=== PATIENT | female | born 1960 | race Caucasian/White ===

== ENCOUNTER 2017-01-02 13:19 | Inpatient (IN) | payer OTHER ==
[~2017-01-02] VITALS: Ht 157.5 cm; Wt 204.1 kg
[2017-01-02 16:02] LABS: ABSOLUTE BASOPHIL COUNT 0.1 /CUMM (0.0-0.2); ABSOLUTE EOSINOPHIL COUNT 0.1 /CUMM (0.0-0.7); ABSOLUTE GRANULOCYTE CT 10.4 /CUMM (1.4-6.5); ABSOLUTE LYMPH COUNT 1.6 /CUMM (1.2-3.4); ABSOLUTE MONOCYTE COUNT 0.9 /CUMM (0.10-0.60); BASOPHIL % 0.4 % (0.0-2.0); EOSINOPHIL % 0.6 % (0-5); GRANULOCYTE % 79.4 % (42.2-75.2); MEAN CORPUSCULAR HGB 29.8 PG (27.0-31.0); MEAN CORPUSCULAR HGB CONC 32.5 G/DL (33.0-37.0); MEAN CORPUSCULAR VOLUME 91.6 FL (81.0-99.0); MEAN PLATELET VOLUME 8.8 FL (7.4-10.4); PLATELET COUNT 240 /CUMM (130-400); RBC DISTRIBUTION WIDTH 14.8 % (11.5-14.5); RED BLOOD CELL CT 5.45 /CUMM (4.20-5.40); WHITE BLOOD CELL COUNT 13.1 /CUMM (4.8-10.8)
--- NOTE | 2017-01-02 16:29 | ED GENERAL ADULT ---
History of Present Illness General Chief Complaint: Abdominal Pain/Flank Pain Stated Complaint: "UM I THINK MY STOMACH IS DISTENDED" Source: patient Exam Limitations: no limitations Vital Signs & Intake/Output Vital Signs & Intake/Output Vital Signs Date Time Temp Pulse Resp B/P Pulse O2 O2 Flow FiO2 Ox Delivery Rate 01/03 2012 98.2 78 19 168/68 97 Room Air 01/02 1623 97.8 100 19 138/76 98 Room Air 01/02 1327 97.9 101 18 139/82 97 Room Air Allergies Coded Allergies: Penicillins (RASH 01/02/17) Reconcile Medications No Known Home Medications Triage Note: C/O ABDOMINAL DISTENSION SINCE MONDAY, +NAUSEA. DECREASED APPETITE. DENIES ABDOMINAL PAIN AT THIS TIME. Triage Nurses Notes Reviewed? yes Onset: Abrupt Duration: day(s): Timing: recent history HPI: 01/02/17 This is a 56-year-old female presents to the emergency department complaining of abdominal pain and distention. She says she was in her usual state of health until last week when she had flulike symptoms. She said she developed subsequently dry heaves. No diarrhea. She says her abdomen is becoming more distended. The onset of the symptoms have been abrupt, the duration has been approximately 7 days, the severity is significant; as her symptoms required her to come to the emergency department for care. She denies any significant past medical or surgical history. No associated symptoms other than malaise, vomiting, and abdominal pain. On physical exam her abdomen is mildly distended and she has right lower quadrant abdominal tenderness, no rebound or guarding. Past History Travel History Traveled to [place] past 21 day No Medical History Any Pertinent Medical History? see below for history Surgical History Surgical History: none Psychosocial History What is your primary language Gibraltarian Family History Hx Contributory? No Review of Systems Review of Systems Constitutional: Denies: fever. EENTM: Reports: no symptoms. Respiratory: Reports: no symptoms. Cardiovascular: Reports: no symptoms. GI: Reports: abdominal pain, vomiting. Genitourinary: Reports: no symptoms. Musculoskeletal: Reports: no symptoms. Skin: Reports: no symptoms. Neurological/Psychological: Reports: no symptoms. Hematologic/Endocrine: Reports: no symptoms. Immunologic/Allergic: Reports: no symptoms. Physical Exam Physical Exam General Appearance: alert, awake, anxious, moderate distress Head: atraumatic, normal appearance Eyes: Bilateral: normal appearance, PERRL, EOMI. Ears, Nose, Throat: normal pharynx, normal ENT inspection Neck: normal inspection, supple Respiratory: normal breath sounds, no respiratory distress Cardiovascular: regular rate/rhythm Peripheral Pulses: 4+ radial (R), 4+ radial (L) Gastrointestinal: tenderness Back: decreased range of motion Extremities: pedal edema Neurologic/Psych: no motor/sensory deficits, awake, alert, oriented x 3 Skin: intact, normal color Comments: On physical exam her abdomen is distended, she has an erythematous, tender, and umbilical hernia, she also has right lower quadrant abdominal tenderness no rebound or guarding. Core Measures ACS in differential dx? No CVA/TIA Diagnosis: No Severe Sepsis Present: No Septic Shock Present: No Progress Differential Diagnoses I considered the following diagnoses in my evaluation of the patient: Plan of Care: Orders Procedure Date/time Status Nothing by Mouth 01/03 B Active Admit to inpatient 01/02 1838 Active TYPE & SCREEN (NOT X-MATCH) 01/02 1825 Complete LIPASE 01/02 1544 Complete LACTIC ACID 01/02 1544 Complete COMPREHENSIVE METABOLIC PANEL 01/02 1544 Complete CBC WITHOUT DIFFERENTIAL 01/02 1544 Complete AMYLASE 01/02 1544 Complete Laboratory Tests 01/02/17 1844: Lactic Acid Cancelled 01/02/17 1555: Anion Gap 10, Estimated GFR > 60, BUN/Creatinine Ratio 15.6, Glucose 113 H, Lactic Acid 2.1, Calcium 10.0, Total Bilirubin 0.9, AST 24, ALT 27, Alkaline Phosphatase 116, Total Protein 8.0, Albumin 4.5, Globulin 3.5, Albumin/Globulin Ratio 1.3, Amylase < 30 L, Lipase 40, CBC w Diff NO MAN DIFF REQ, RBC 5.45 H, MCV 91.6, MCH 29.8, RDW 14.8 H, MPV 8.8, Gran % 79.4 H, Lymphocytes % 12.4 L, Monocytes % 7.2, Eosinophils % 0.6, Basophils % 0.4, Absolute Granulocytes 10.4 H, Absolute Lymphocytes 1.6, Absolute Monocytes 0.9 H, Absolute Eosinophils 0.1 , Absolute Basophils 0.1, PUBS MCHC 32.5 L Initial ED EKG: none Departure Departure Disposition: STILL A PATIENT Condition: Stable Clinical Impression Primary Impression: Bowel obstruction Referrals: GENE MCCLAIN MD (PCP/Family) Departure Forms: Customer Survey General Discharge Information Prescriptions: Current Visit Scripts No Known Home Medications Comments 01/02/[address] positive for bowel obstruction spoke to surgical PA The patient was seen and evaluated in the emergency department by Brandy Case MD. The plan is for her to be taken to the OR. She was treated with IV fluids. CT scan results below: PATIENT: VASQUEZ DOWNING PRESENT AGE: 56 PATIENT ACCOUNT NO: [id number] : 56 LOCATION: [facility] ORDERING PHYSICIAN: MAIRA ESTHER COTTON DO SERVICE DATE: 01/02/17 EXAM TYPE: CAT - CT ABD & PELVIS W/O IV CONTRAS EXAMINATION: CT ABDOMEN AND PELVIS WITHOUT CONTRAST CLINICAL INFORMATION: Right lower quadrant abdominal pain. Evaluate for acute appendicitis. COMPARISON: None. TECHNIQUE: Multidetector volumetric imaging was performed from the superior aspect of the liver through the pubic symphysis. Sagittal and coronal reformatted images were obtained on the technologist's workstation. DLP: 1720 mGy-cm FINDINGS: Limited evaluation of the solid abdominal viscera in the absence of intravenous contrast and also secondary to body habitus. LUNG BASES: The visualized lung bases are unremarkable. LIVER, GALLBLADDER, AND BILIARY TREE: The liver is normal in size, shape, and attenuation. No focal hepatic lesion or biliary ductal dilatation is present. The gallbladder is decompressed, without evidence of radiopaque gallstones, gallbladder wall thickening, or obvious pericholecystic inflammatory changes. PANCREAS: Unremarkable. SPLEEN: Unremarkable. ADRENAL GLANDS: Unremarkable. KIDNEYS AND URETERS: The kidneys are normal in size, shape and contour. No contour deforming renal lesions are identified. No renal or ureteral stones are identified and there is no hydroureteronephrosis of either kidney or renal collecting system. BLADDER: Unremarkable. GASTROINTESTINAL TRACT: Evaluation of the gastrointestinal system is notable for a large umbilical hernia containing intraperitoneal fat as well as dilated loops of large bowel which appear to correspond to segment of the transverse colon. Loops of large bowel proximal to the hernia sac are dilated, with associated air-fluid levels. Specifically, the cecum and ascending colon as well as proximal segment of the transverse colon are dilated. Segment of transverse colon distal to the hernia sac as well as the descending and rectosigmoid colon are decompressed. Dependent foci of air along the cecal wall could reflect bowel wall pneumatosis. No portal venous air is identified. Loops of small bowel are normal in caliber. No organizing intra-abdominal or pelvic fluid collections are identified. The appendix is not clearly visualized on this examination. There are no visible inflammatory changes within the right lower quadrant of the abdomen. There is scattered colonic diverticulosis notably along the descending colon, without secondary signs of acute diverticulitis. ABDOMINAL WALL: As noted above, there is a large ventral abdominal wall hernia, likely corresponding to an umbilical hernia containing segments of the transverse colon. There are associated air-fluid levels and there are inflammatory changes surrounding the loops of bowel within the umbilical hernia. LYMPH NODES: No significant abdominal or pelvic adenopathy. VASCULAR: Limited evaluation for vascular patency given lack of intravenous contrast. The imaged abdominal aorta and its branching vessels are normal in caliber. PELVIC VISCERA: An intrauterine device is present within the uterus. No adnexal masses are identified. OSSEOUS STRUCTURES: No acute osseous abnormality. Normal alignment of the imaged thoracolumbar spine. No visible destructive osseous lesions. IMPRESSION: 1. Significantly limited exam secondary to patient body habitus. There is extensive streak artifact from patient contact along the CT gantry which limits evaluation of the intra-abdominal contents. 2. Large bowel obstruction secondary to a large ventral abdominal wall hernia, likely corresponding to a large umbilical hernia. The large umbilical hernia contains segments of the transverse colon. Loops of large bowel proximal to the ventral abdominal wall hernia, including the cecum and ascending colon as well as segments of the proximal transverse colon are dilated and obstructed, with associated air-fluid levels. Dependent foci of air along the cecal wall could reflect foci of bowel wall pneumatosis which raises the suspicion for bowel ischemia. Loops of large bowel distal to this site of obstruction along the ventral abdominal wall hernia are decompressed. Loops of small bowel are normal in caliber. 3. No organizing intra-abdominal or pelvic fluid collections. This critical result was discussed with Jose Diana PA-C at 6:00 PM on 01/02/2017 and it was ascertained that the content and urgency of the report was understood at the time of direct communication. DICTATED BY: VASU QUINONEZ MD DATE/TIME DICTATED:01/02/171754 COAL HANDLING SUPERVISOR:KATE DATE/TIME TRANSCRIBED:01/02/171754 CONFIDENTIAL, DO NOT COPY WITHOUT APPROPRIATE AUTHORIZATION. <Electronically signed in Other Vendor System> SIGNED BY: VASU QUINONEZ MD 01/02/17 1811 Admission Note Spoke With: NIEVES GREENE,BRANDY N. Documentation of Exam: Documentation of any treatments & extenuating circumstances including Concerns Regarding Discharge (functional status, medication knowledge or non-compliance, living conditions, etc.) that warrant an admission rather than observation: [ PATIENT WITH BOWEL OBSTRUCTION FOR THE OR] Critical Care Note Critical Care Note Critical Care Time: non-applicable
--- NOTE | 2017-01-02 18:11 | CT SCAN REPORT ---
EXAMINATION: CT ABDOMEN AND PELVIS WITHOUT CONTRAST CLINICAL INFORMATION: Right lower quadrant abdominal pain. Evaluate for acute appendicitis. COMPARISON: None. TECHNIQUE: Multidetector volumetric imaging was performed from the superior aspect of the liver through the pubic symphysis. Sagittal and coronal reformatted images were obtained on the technologist's workstation. DLP: 1720 mGy-cm FINDINGS: Limited evaluation of the solid abdominal viscera in the absence of intravenous contrast and also secondary to body habitus. LUNG BASES: The visualized lung bases are unremarkable. LIVER, GALLBLADDER, AND BILIARY TREE: The liver is normal in size, shape, and attenuation. No focal hepatic lesion or biliary ductal dilatation is present. The gallbladder is decompressed, without evidence of radiopaque gallstones, gallbladder wall thickening, or obvious pericholecystic inflammatory changes. PANCREAS: Unremarkable. SPLEEN: Unremarkable. ADRENAL GLANDS: Unremarkable. KIDNEYS AND URETERS: The kidneys are normal in size, shape and contour. No contour deforming renal lesions are identified. No renal or ureteral stones are identified and there is no hydroureteronephrosis of either kidney or renal collecting system. BLADDER: Unremarkable. GASTROINTESTINAL TRACT: Evaluation of the gastrointestinal system is notable for a large umbilical hernia containing intraperitoneal fat as well as dilated loops of large bowel which appear to correspond to segment of the transverse colon. Loops of large bowel proximal to the hernia sac are dilated, with associated air-fluid levels. Specifically, the cecum and ascending colon as well as proximal segment of the transverse colon are dilated. Segment of transverse colon distal to the hernia sac as well as the descending and rectosigmoid colon are decompressed. Dependent foci of air along the cecal wall could reflect bowel wall pneumatosis. No portal venous air is identified. Loops of small bowel are normal in caliber. No organizing intra-abdominal or pelvic fluid collections are identified. The appendix is not clearly visualized on this examination. There are no visible inflammatory changes within the right lower quadrant of the abdomen. There is scattered colonic diverticulosis notably along the descending colon, without secondary signs of acute diverticulitis. ABDOMINAL WALL: As noted above, there is a large ventral abdominal wall hernia, likely corresponding to an umbilical hernia containing segments of the transverse colon. There are associated air-fluid levels and there are inflammatory changes surrounding the loops of bowel within the umbilical hernia. LYMPH NODES: No significant abdominal or pelvic adenopathy. VASCULAR: Limited evaluation for vascular patency given lack of intravenous contrast. The imaged abdominal aorta and its branching vessels are normal in caliber. PELVIC VISCERA: An intrauterine device is present within the uterus. No adnexal masses are identified. OSSEOUS STRUCTURES: No acute osseous abnormality. Normal alignment of the imaged thoracolumbar spine. No visible destructive osseous lesions. IMPRESSION: 1. Significantly limited exam secondary to patient body habitus. There is extensive streak artifact from patient contact along the CT gantry which limits evaluation of the intra-abdominal contents. 2. Large bowel obstruction secondary to a large ventral abdominal wall hernia, likely corresponding to a large umbilical hernia. The large umbilical hernia contains segments of the transverse colon. Loops of large bowel proximal to the ventral abdominal wall hernia, including the cecum and ascending colon as well as segments of the proximal transverse colon are dilated and obstructed, with associated air-fluid levels. Dependent foci of air along the cecal wall could reflect foci of bowel wall pneumatosis which raises the suspicion for bowel ischemia. Loops of large bowel distal to this site of obstruction along the ventral abdominal wall hernia are decompressed. Loops of small bowel are normal in caliber. 3. No organizing intra-abdominal or pelvic fluid collections. This critical result was discussed with Jose Diana PA-C at 6:00 PM on 01/02/2017 and it was ascertained that the content and urgency of the report was understood at the time of direct communication.
--- NOTE | 2017-01-02 20:34 | History & Physical Pre-Op ---
General Information and HPI History of Present Illness: CC: abdominal distention and vomiting HPI: Otherwise healthy no medications nondiabetic 56-year-old overweight ex-smoker who started having nausea vomiting about 3 days ago she has a long-standing umbilical hernia. She says that the area of the hernia does not have pain but overall her abdomen seems a little more distended. She denies any recent heavy lifting or other straining no constipation she doesn't move her bowels every day and hasn't had a bowel movement or flatus since yesterday, and no recent flulike symptoms no fevers no sweats. I've reviewed the [facility]. No history of GERD, PUD, bleeding problems, heart disease or issues with anesthesia. Past surgical history none, family history negative for diabetes or cancer Allergies/Medications Allergies: Coded Allergies: Penicillins (RASH 01/02/17) Home Med list No Known Home Medications Past History Medical History Neurological: NONE EENT: NONE Cardiovascular: NONE Respiratory: NONE Gastrointestinal: NONE Hepatic: NONE Renal: NONE Musculoskeletal: NONE Psychiatric: NONE Endocrine: hypothyroidism Blood Disorders: NONE Cancer(s): NONE BRAIN SURGEON/Reproductive: NONE Surgical History Pertinent Surgical History: none Past Family/Social History Psychosocial History ETOH Use: denies use Illicit Drug Use: denies illicit drug use Review of Systems Review of Systems: Constitutional: No fever, sweats or weight loss ENMT: No sore throat Cardiovascular: No chest pain, palpitations or leg swelling Respiratory: No shortness of breath, cough, or sputum or dyspnea on exertion GI: No GERD or bleeding per rectum : No dysuria or hematuria Musculoskeletal: No new muscle weakness, bone or joint pain Skin / Breast: No jaundice, rashes or itching Psychiatric: No history of drug or alcohol abuse no depression or anxiety Hematologic / lymphatic system: No problems with excessive bleeding, bruising, or blood clots Exam & Diagnostic Data Last 24 Hrs of Vital Signs/I&O I reviewed Vital Signs Date Time Temp Pulse Resp B/P Pulse O2 O2 Flow FiO2 Ox Delivery Rate 01/03 2012 98.2 78 19 168/68 97 Room Air 01/02 1623 97.8 100 19 138/76 98 Room Air 01/02 1327 97.9 101 18 139/82 97 Room Air Physical Exam: Constitutional: pleasant, no acute distress, conversant Eyes: sclera anicteric ENMT: ears and nose atraumatic, moist mucous membranes, good dentition, no lip lesions Neck: Supple, trachea is midline, no cervical or supraclavicular adenopathy and no palpable thyromegaly Cardiovascular: S1, S2, no murmurs, no peripheral edema Respiratory: clear to auscultation with normal respiratory effort and no intercostal retractions GI: abdomen is obese unable to appreciate hepatosplenomegaly there is an obvious incarcerated umbilical hernia. Umbilical skin is very attenuated and a deep hue , otherwise no erythema or crepitus but the hernia is tender Extremities / lymphatics: symmetrically warm, free range of motion no peripheral edema, no cervical, supraclavicular, axillary, or inguinal adenopathy Musculoskeletal: Normal gait and station, no digital cyanosis, good muscle strength and tone no atrophy, motor grossly 5 out of 5 throughout Skin: no jaundice, no rashes warm, nondiaphoretic, no areas of erythema or induration Psychiatric: mood and affect are appropriate and alert and oriented to person place and time Last 24 Hrs of Labs/Deepak: I reviewed Laboratory Tests 01/02/17 1844: Lactic Acid Cancelled 01/02/17 1555: Anion Gap 10, Estimated GFR > 60, BUN/Creatinine Ratio 15.6, Glucose 113 H, Lactic Acid 2.1, Calcium 10.0, Total Bilirubin 0.9, AST 24, ALT 27, Alkaline Phosphatase 116, Total Protein 8.0, Albumin 4.5, Globulin 3.5, Albumin/Globulin Ratio 1.3, Amylase < 30 L, Lipase 40, CBC w Diff NO MAN DIFF REQ, RBC 5.45 H, MCV 91.6, MCH 29.8, RDW 14.8 H, MPV 8.8, Gran % 79.4 H, Lymphocytes % 12.4 L, Monocytes % 7.2, Eosinophils % 0.6, Basophils % 0.4, Absolute Granulocytes 10.4 H, Absolute Lymphocytes 1.6, Absolute Monocytes 0.9 H, Absolute Eosinophils 0.1 , Absolute Basophils 0.1, PUBS MCHC 32.5 L Assessment/Plan Assessment/Plan: Studies I reviewed today's CT scan on PACS myself, it shows an incarcerated and obstructed transverse colon with significant proximal dilatation of the right colon. On the radiology report there is concern for possible ischemic changes at the cecum. Impression is an acute abdomen with incarcerated possibly strangulated colon, the defect measures about 3/2 cm. I recommend urgent exploration reduction of the colon possible colon resection possible ostomy at depends on the other hand as I expect the patient diagram for her if the bowel can be reduced safely and without contamination and it appears viable we may be able to use mesh to repair the hernia otherwise this is a staged situation where closed the hernia primarily come back after she recovers to repair the hernia with mesh the reason it's urgent is bowel viability is without ruptures it can cause life-threatening sepsis. Risks of the procedure include bleeding infection injury to surrounding structures such as bowel blood vessels and ureter, if we are to do a bowel resection there is a risk of anastomotic leak if we use mesh there is a risk of mesh infection if we don't use mesh or we use mesh there is a risk of hernia recurrence. We also discussed the potential risks, benefits and alternatives to the procedure and surgery in general, issues that included but were not limited to, anesthetic risks hemorrhage requiring transfusion, the risk of transfusion itself, infection, heart attack, stroke, . I explained the importance of smoking history as it pertains to surgery, especially with general anesthesia and healing, though she stopped over 25 years ago. As Ranked By This Provider Problem List: 1. Bowel obstruction 2. Incarcerated umbilical hernia
[2017-01-03] VITALS (12 sets, daily range): BP systolic 120–139; BP diastolic 60–84
--- NOTE | 2017-01-03 00:22 | Admission Core Measures ---
Admission Lab Results I reviewed the following labs: Laboratory Tests 01/02 01/02 1844 1555 Chemistry Sodium (137 - 145 mmol/L) 135 L Potassium (3.5 - 5.1 mmol/L) 3.5 Chloride (98 - 107 mmol/L) 94 L Carbon Dioxide (22 - 30 mmol/L) 31 H Anion Gap (5 - 16) 10 BUN (7 - 17 mg/dL) 14 Creatinine (0.5 - 1.0 mg/dL) 0.9 Estimated GFR (>60 ml/min) > 60 BUN/Creatinine Ratio (7 - 25 %) 15.6 Glucose (65 - 99 mg/dL) 113 H Lactic Acid (0.7 - 2.1 mmol/L) Cancelled 2.1 Calcium (8.4 - 10.2 mg/dL) 10.0 Total Bilirubin (0.2 - 1.3 mg/dL) 0.9 AST (14 - 36 U/L) 24 ALT (9 - 52 U/L) 27 Alkaline Phosphatase (<127 U/L) 116 Total Protein (6.3 - 8.2 g/dL) 8.0 Albumin (3.5 - 5.0 g/dL) 4.5 Globulin (1.9 - 4.2 gm/dL) 3.5 Albumin/Globulin Ratio (1.1 - 2.2 %) 1.3 Amylase (30 - 110 U/L) < 30 L Lipase (23 - 300 U/L) 40 Hematology CBC w Diff NO MAN DIFF REQ WBC (4.8 - 10.8 /CUMM) 13.1 H RBC (4.20 - 5.40 /CUMM) 5.45 H Hgb (12.0 - 16.0 G/DL) 16.3 H Hct (37 - 47 %) 50.0 H MCV (81.0 - 99.0 FL) 91.6 MCH (27.0 - 31.0 PG) 29.8 RDW (11.5 - 14.5 %) 14.8 H Plt Count (130 - 400 /CUMM) 240 MPV (7.4 - 10.4 FL) 8.8 Gran % (42.2 - 75.2 %) 79.4 H Lymphocytes % (20.5 - 51.1 %) 12.4 L Monocytes % (1.7 - 9.3 %) 7.2 Eosinophils % (0 - 5 %) 0.6 Basophils % (0.0 - 2.0 %) 0.4 Absolute Granulocytes (1.4 - 6.5 /CUMM) 10.4 H Absolute Lymphocytes (1.2 - 3.4 /CUMM) 1.6 Absolute Monocytes (0.10 - 0.60 /CUMM) 0.9 H Absolute Eosinophils (0.0 - 0.7 /CUMM) 0.1 Absolute Basophils (0.0 - 0.2 /CUMM) 0.1 PUBS MCHC (33.0 - 37.0 G/DL) 32.5 L Admission Meds I reviewed the following Meds: Current Medications Sig/Stephanie Start time Last Medication Dose Stop Time Status Admin Ampicillin Sodium/ 3,000 MG Q6 01/03 0300 UNVr Sulbactam Sodium 01/03 0929 (Unasyn) Sodium Chloride 100 ML (Normal Saline 0.9%) Dextrose/Sodium 1,000 ML .Q10H 01/03 0030 UNVr Chloride (D5W-1/2 Normal Saline 1000ML) Heparin Sodium 5,000 UNIT Q8 01/03 0600 UNVr (Porcine) Morphine Sulfate 2 MG Q2P PRN 01/03 0030 UNVr (Morphine) Morphine Sulfate 4 MG Q2P PRN 01/03 0030 UNVr (Morphine) Ondansetron HCl 4 MG Q6P PRN 01/03 0030 UNVr (Zofran) Oxycodone/ 1 TAB Q4P PRN 01/03 0030 UNVr Acetaminophen (Percocet) Oxycodone/ 2 TAB Q4P PRN 01/03 0030 UNVr Acetaminophen (Percocet) Zolpidem Tartrate 5 MG AT BEDTIME NEED.. 01/03 0030 UNVr (Ambien) Acute Coronary Syndrome Inclusion Criteria ACS Diagnosis No Inpatient Core Measures LDL Reminder: If No, please order W/I first 24hr of stay Congestive Heart Failure Inclusion Criteria CHF Diagnosis No Cerebrovascular accident Inclusion Criteria CVA/TIA Diagnosis No Inpatient Core Measures Bedside Swallow Eval Reminder: If BSE failed, place ST order Antithrombotic Reminder: Order Antithrombotic Medication by end of day 2 Antithrombotic Reminder: Document Reason Antithrombotic Not ordered by end of day 2 AFIB/Flutter Reminder: If Present, add to problem list AFIB/Flutter Reminder: Order Anticoag Medication for pts with AFIB/Flutter Atherosclerosis Reminder: If Present, add to problem list LDL Reminder: If No, please order W/I first 24hr of stay PT Order Reminder: If No, please order Venous thromboembolism Inpatient Core Measures VTE Risk Factors: Age > 40, Obesity, Surgery No [facility] prophylaxis d/t No contraindications No VTE Pharm Prophylaxis d/t No contraindications Inclusion Criteria - Per Current guidelines, there needs to be overlap - treatment for the first 5 days of Warfarin therapy. - Parenteral Anticoagulation (IV or SC) needs to be - given along with Warfarin therapy. VTE Diagnosis No VTE Type NONE VTE Confirmed by (Test) NONE Problem List As ranked by this Provider includes Assessment & Plan 1. Incarcerated umbilical hernia HOME MEDS Home Med List No Known Home Medications
--- NOTE | 2017-01-03 04:42 | PN- General Surgery ---
Subjective Subjective: Post op check Pt awake and alert, without complaints No nausea, pain well controlled Objective Vital Signs and I&Os Vital Signs Date Time Temp Pulse Resp B/P Pulse O2 O2 Flow FiO2 Ox Delivery Rate 01/03 0430 98.0 63 16 120/65 95 Nasal 3.0L Cannula 01/03 0241 97.8 69 22 130/60 95 Nasal 3.0L Cannula 01/03 2012 98.2 78 19 168/68 97 Room Air 01/02 1623 97.8 100 19 138/76 98 Room Air 01/02 1327 97.9 101 18 139/82 97 Room Air Intake & Output 01/03 0800 01/03 0000 01/02 1600 01/02 0800 01/02 0000 01/01 1600 Intake Total 1000 Output Total Balance 1000 Intake, IV 1000 Physical Exam: VSS, afebrile Voided suzi-op - not measured General: alert and oriented times three Chest: clear anteriorly bilaterally, RRR Abd: soft, hypoactive bs but present Ext: warm, trace edema all 4 Wound: dressed, dry CANDI: small amount serosang drainage Assessment/Plan Assessment/Plan 56 yo female s/p open umb hernia repair with mesh candi to suction clear liquid diet in am hep sc for dvt ppx pain management IVF abx post op for 2 doses Core Measures/Miscellaneous Venous Thromboembolism VTE Risk Factors: Age > 40, Surgery VTE Contraindications: No Contraindications VTE Diagnosis: No VTE Type: NONE VTE Confirmed by (Test): NONE Beta Bradford Is Beta Bradford a Home Med? No Antibiotics Is Patient on Antibiotics? Yes If Yes: prophylaxis (24 hrs post op)
--- NOTE | 2017-01-03 08:02 | PN- General Surgery ---
See Addendum Subjective Subjective: Patient doing well, no complaints at the present time. Denies chest pain, shortness of breath and difficulty breathing. Denies nausea and vomitting. Has been passing flatus. Objective Vital Signs and I&Os Vital Signs Date Time Temp Pulse Resp B/P Pulse O2 O2 Flow FiO2 Ox Delivery Rate 01/03 0712 97.9 67 20 138/82 96 01/03 0430 98.0 63 16 120/65 95 Nasal 3.0L Cannula 01/03 0241 97.8 69 22 130/60 95 Nasal 3.0L Cannula 01/03 2012 98.2 78 19 168/68 97 Room Air 01/02 1623 97.8 100 19 138/76 98 Room Air 01/02 1327 97.9 101 18 139/82 97 Room Air Intake & Output 01/03 0800 01/03 0000 01/02 1600 01/02 0800 01/02 0000 01/01 1600 Intake Total 1000 Output Total Balance 1000 Intake, IV 1000 Physical Exam: General: Alert and oriented x3, no acute distress Cardiac; RRR, s1s2 Pulm: CTA bilaterally Abdomen: Obese, Incisional tenderness, SHAHBAZ drain with 12cc of sanguinous drainage over the past 2 hours. Extremities: MOves all extremities, distal sensation intact. Bialteral calves soft and non-tender Surgical site: Dressing dry and intact Assessment/Plan Assessment/Plan This is a 56 year old female, POD 0, s/p repair incarcerated umbilical hernia. No PMH documented, no surgical history. -Clear liquid diet -PT eval. OOB, ambulate -Continue current pain regimen -DVT ppx to include sub q heparin -D/C iv fluids when tolerating adequte po -Continue post op unasyn for abx ppx -Await improved bowel function before advancing diet -Will d/w Dr. Case Core Measures/Miscellaneous Venous Thromboembolism VTE Risk Factors: Age > 40, Surgery VTE Contraindications: No Contraindications VTE Diagnosis: No VTE Type: NONE VTE Confirmed by (Test): NONE Beta Bradford Is Beta Bradford a Home Med? No Antibiotics Is Patient on Antibiotics? Yes If Yes: prophylaxis (24 hrs post op)
[2017-01-03 08:19] LABS: ABSOLUTE BASOPHIL COUNT 0 /CUMM (0.0-0.2); ABSOLUTE EOSINOPHIL COUNT 0 /CUMM (0.0-0.7); ABSOLUTE LYMPH COUNT 0.9 /CUMM (1.2-3.4); BASOPHIL % 0 % (0.0-2.0)
[2017-01-03 08:29] LABS: ABSOLUTE GRANULOCYTE CT 11.3 /CUMM (1.4-6.5); EOSINOPHIL % 0.2 % (0-5); MEAN CORPUSCULAR HGB 30.2 PG (27.0-31.0); MEAN CORPUSCULAR HGB CONC 32.8 G/DL (33.0-37.0); MEAN CORPUSCULAR VOLUME 92.2 FL (81.0-99.0); MEAN PLATELET VOLUME 9.3 FL (7.4-10.4); PLATELET COUNT 204 /CUMM (130-400); RED BLOOD CELL CT 4.83 /CUMM (4.20-5.40); WHITE BLOOD CELL COUNT 13.3 /CUMM (4.8-10.8)
[2017-01-03 08:35] LABS: HEMATOCRIT 44.5 % (37-47)
[2017-01-03 09:10] LABS: GRANULOCYTE % 85.2 % (42.2-75.2)
--- NOTE | 2017-01-03 17:01 | Operative Report ---
Operative/Inv Procedure Report Surgery Date: 01/02/17 Name of Procedure: Repair of incarcerated ventral (umbilical) hernia with mesh, open, and partial omentectomy Pre-Operative Diagnosis: Incarcerated with a large bowel obstruction, ventral (umbilical) hernia Post-Operative Diagnosis: Same Estimated Blood Loss: scant, 50ml to 100ml Surgeon/Advertising Strategist: NIEVES GREENE,BRANDY BARRERA Anesthesia: general endotracheal tube Operative/Procedure Note Note: Patient was placed on the OR table in the supine position. After successful induction of general anesthesia, another timeout was done, antibiotics given, the abdomen was clipped prepped and draped in the usual sterile fashion. Her abdomen was quite obese and based on exam and the CT scan the mass of the hernia , centered beneath the umbilical stalk, was hanging to the right of midline and at the level of the iliac crests so we planned a midline epigastric incision that started about 3 cm above the attenuated umbilical skin and continued superiorly approximately 15 cm. This was deepened with cautery and the herniated fat and overlying sac and transverse colon which was twisted inside and dilated, it was very tight so we deliberately opened the fascia superiorly to release the contents in the interest of perfusion, and we also to remove smaller devascularized portions of the omentum. Then we dissected circumferentially off the fascia, defining the true edges of the defect. It was [place] measuring about 3-1/2 cm. After release the colon remained dilated and we checked the cecum and ascending colon and the distal transverse colon visually and by palpation and we inserted also check the descending colon get a sense of how it was oriented her transverse colon was very dilated and elongated and twisted being chronically stuck in this hernia and we had to make sure that when we restored it back to the peritoneum it wasn't twisted anymore and this required us to remove some of the shredded omentum which was only partially vascularized equals of the adhesions. The bowel overall especially the colon was viable and we checked this with a Doppler as well. We assessed the main defect and our midline incision and decided to close it in the midline vertically but over three 6 cm ventraleX meshes underneath, in series. We used the tails to center it and then closed the defect with several continuous runs of 0 Maxon, incorporating the mesh with each bite. The subcutaneous layer and William's fascia were reapproximated to cover the incision line, but the hernia had left a large subcutaneous space which we tried to isolate from the main closure mesh site and then inserted a small round Mateo-Chan drain into the subcutaneous space including the attenuated skin at the umbilicus. The incision was irrigated and then the skin was reapproximated with yoli followed by an island dressing and also a drain gauze and tape. EBL minimal lap and sponge counts correct wound expectancy clean IV fluids crystalloid complications none patient tolerated the procedure well was awakened extubated returned to the recovery room in satisfactory condition.
[2017-01-04 06:49] VITALS: BP 122/98
--- NOTE | 2017-01-04 07:06 | PN- General Surgery ---
See Addendum Subjective Subjective: The patient was seen this morning postoperatively day #2. She complains of some incisional soreness which is okay with the current pain regiment. She feels very deconditioned and has difficulty ambulating. She required oxygen supplementation last night to maintain satisfactory saturation. She also reports decreased appetite but is tolerating small amounts of liquids and toast. Objective Vital Signs and I&Os Vital Signs Date Time Temp Pulse Resp B/P Pulse O2 O2 Flow FiO2 Ox Delivery Rate 01/04 0649 98.7 110 20 122/98 90 Nasal 3.0L Cannula 04/ 0000 Nasal 3.0L Cannula 01/03 2216 99.4 89 20 130/82 96 Nasal Cannula / 1933 99.2 83 20 130/84 90 Room Air / 1600 99.0 80 20 138/84 95 Nasal 3.0L Cannula / 1552 99.0 80 20 138/84 95 Nasal Cannula / 1358 99.1 74 20 122/77 95 Nasal 3.0L Cannula / 1111 98.7 80 18 139/80 93 Nasal 3.0L Cannula / 1000 98.5 77 18 133/82 95 Nasal 3.0L Cannula / 0901 98.5 77 18 133/82 95 Nasal 3.0L Cannula / 0800 97.9 67 20 138/82 96 Nasal 3.0L Cannula / 0712 97.9 67 20 138/82 96 Intake & Output 04/ 0800 04/05 0000 04/04 1600 04/04 0800 04/04 0000 04/03 1600 Intake Total 820 6042 538 9141 Output Total 250 930 320 312 Balance -250 -110 463 443 0334 Intake, IV 800 842 937 7838 Intake, Oral 20 520 Number 0 0 Bowel Movements Output, 30 20 12 Drainage Output, Urine 250 900 300 300 Patient 450 lb 450 lb Weight Physical Exam: Gen.: Alert and in no obvious distress Skin: Warm and dry Abdomen: Soft, obese, appropriate incisional tenderness, bowel sounds positive. Surgical incision is clean, dry, and intact. There is a SHAHBAZ 1 holding suction with serosanguineous drainage in the bulb. Extremities: Bilateral lower extremities are warm without calf tenderness. Assessment/Plan Assessment/Plan Assessment: 56-year-old obese female status post reduction and repair of incarcerated umbilical hernia with mesh postoperative day #2. The patient is making slow progression however she may benefit from physical therapy and respiratory care. Plan: Continue regular diet and encouraged increased by mouth intake Out of bed and ambulate, will obtain a physical therapy consultation Continue current pain regiment Keep IV fluids until increased by mouth intake Strict I's and O's GI and DVT prophylaxis Keep SHAHBAZ to self suction Total respiratory care Core Measures/Miscellaneous Venous Thromboembolism VTE Risk Factors: Age > 40, Surgery VTE Contraindications: No Contraindications VTE Diagnosis: No VTE Type: NONE VTE Confirmed by (Test): NONE Beta Bradford Is Beta Bradford a Home Med? No Antibiotics Is Patient on Antibiotics? No
[2017-01-04 14:03] LABS: ABSOLUTE BASOPHIL COUNT 0 /CUMM (0.0-0.2); ABSOLUTE EOSINOPHIL COUNT 0.1 /CUMM (0.0-0.7); ABSOLUTE GRANULOCYTE CT 9.6 /CUMM (1.4-6.5); ABSOLUTE MONOCYTE COUNT 0.8 /CUMM (0.10-0.60); BASOPHIL % 0.2 % (0.0-2.0); EOSINOPHIL % 1.2 % (0-5); GRANULOCYTE % 82.6 % (42.2-75.2); MEAN CORPUSCULAR HGB 30.5 PG (27.0-31.0); MEAN CORPUSCULAR HGB CONC 33.4 G/DL (33.0-37.0); MEAN CORPUSCULAR VOLUME 91.4 FL (81.0-99.0); MEAN PLATELET VOLUME 8.9 FL (7.4-10.4); PLATELET COUNT 203 /CUMM (130-400); RBC DISTRIBUTION WIDTH 14.7 % (11.5-14.5); WHITE BLOOD CELL COUNT 11.7 /CUMM (4.8-10.8)
[2017-01-04 14:36] VITALS: BP 131/84
[2017-01-04 21:54] VITALS: BP 134/78
[2017-01-05 06:57] VITALS: BP 139/95
--- NOTE | 2017-01-05 09:11 | PN- General Surgery ---
See Addendum Subjective Subjective: Pt. states she ambulates much better herself to bathroom. Denies dizziness. Tolerating solid diet and has been passing large flatus. Objective Vital Signs and I&Os Vital Signs Date Time Temp Pulse Resp B/P Pulse O2 O2 Flow FiO2 Ox Delivery Rate 01/05 657 98.1 87 23 139/95 91 Room Air 01/05 0000 Nasal 1.0L Cannula 01/04 2154 99.0 88 20 134/78 93 01/04 1600 Nasal 1.0L Cannula 01/04 1436 98.7 83 20 131/84 94 Nasal 1.0L Cannula 01/04 0908 Nasal 2.0L Cannula Intake & Output 01/05 0800 01/05 0000 01/04 0000 Intake Total 681 081 4114 1000 820 Output Total 505 600 307 650 930 Balance -385 -200 1093 350 -110 Intake, IV 800 800 800 Intake, Oral 120 400 600 200 20 Number 0 Bowel Movements Output, 5 7 0 30 Drainage Output, Urine 500 600 300 650 900 Alert oriented, sitting in chair, looks comfortable. Lungs wityh decreased breath sounds at bases. Herat regular Abdomen , obese with large pannus.Dressing over umbilical area is clean, dry.No surrounding erythrema. SHAHBAZ in place with scant amounts of serosang. drainage. Abdomen is non tender to palpation. Assessment/Plan Assessment/Plan s/p Open umbilical hernia repair with mesh POD#3 stable hemodynamics. Sats 91% on room air, likely r/t body habitus.No need for oxygen Abdominal exam benign as expected. She has bowel fxn and tolerating solid diet.Wound without signs of incfection and SHAHBAZ with minimal output. Pain is miniumal. She does not require narcotics for pain. Instructed she can use Tylenol prn at home. Her mobility status is improving. She is awiting final PT evaluation today with stairs for disposition. I anticipate discharge home later today with SHAHBAZ in place and follow up on Monday in office pending PT eval. Core Measures/Miscellaneous Venous Thromboembolism VTE Risk Factors: Age > 40, Surgery VTE Contraindications: No Contraindications VTE Diagnosis: No VTE Type: NONE VTE Confirmed by (Test): NONE Beta Bradford Is Beta Bradford a Home Med? No Antibiotics Is Patient on Antibiotics? No
--- NOTE | 2017-01-05 09:25 | Patient Discharge Instructions ---
Discharge Instructions General Discharge Information You were seen/treated for: umbilical hernia You had these procedures: Hernia repair Watch for these problems: Call if fever greater tahn 101, redness or drainage around incision, increasing incisonal pain,abdominal pain , nausea or vomiting. Call Surgeon to remove: Other, surgeon will remove your drain in office Do not soak the wound: Yes Daily wet to dry dressings: No Other wound care: Keep wound area dry. Do not soak, may sponge bathe. Monitor and record drain output. Diet Continue normal diet: Yes Recommended Diet: Regular Activity Full Activity/No Limits: No (Do not lift more than 10 lbs.) Activity Self Limited: No Pounds, do NOT lift more than: 10 Acute Coronary Syndrome Inclusion Criteria At DC or during hospital stay patient has or had the following: ACS DIAGNOSIS No Discharge Core Measures Meds if any: Prescribed or Continued at Discharge JOSE/ARB if EF <40% No Aspirin No Beta-Bradford No Statin No Meds if any: NOT Prescribed or Continued at Discharge Congestive Heart Failure Inclusion Criteria At DC or during hospital stay patient has or had the following: CHF DIAGNOSIS No Discharge Core Measures Meds if any: Prescribed or Continued at Discharge JOSE/ARB for EF <40% No Meds if any: NOT Prescribed or Continued at Discharge Cerebrovascular accident Inclusion Criteria At DC or during hospital stay patient has or had the following: CVA/TIA Diagnosis No Discharge Core Measures Meds if any: Prescribed or Continued at Discharge Antithrombotic No Statin (required if LDL =>70) No Anticoagulant No Meds if any: NOT Prescribed or Continued at Discharge Venous thromboembolism Inclusion Criteria VTE Diagnosis No VTE Type NONE VTE Confirmed by (Test) NONE Discharge Core Measures - Per Current guidelines, there needs to be overlap - treatment for the first 5 days of Warfarin therapy. - If discharged on Warfarin prior to 5 days of - overlap therapy, the patient will need to be - assessed for post discharge needs including - *Post discharge parental anticoagulation - *Warfarin and/or parental anticoagulation education - *Follow up date to check INR post discharge At least 5 days overlap therapy as Inpatient No Meds if any: Prescribed or Continued at Discharge Warfarin No Note: Overlap Therapy is Warfarin and Anticoagulant Meds if any: NOT Prescribed or Continued at Discharge
--- NOTE | 2017-01-05 09:28 | Patient Discharge Instructions ---
Discharge Instructions General Discharge Information You were seen/treated for: umbilical hernia You had these procedures: Hernia repair Watch for these problems: Call if fever greater tahn 101, redness or drainage around incision, increasing incisonal pain,abdominal pain , nausea or vomiting. Call Surgeon to remove: Other, surgeon will remove your drain in office Do not soak the wound: Yes Daily wet to dry dressings: No Other wound care: Keep wound area dry. Do not soak, may sponge bathe. Monitor and record drain output. Diet Continue normal diet: Yes Recommended Diet: Regular Activity Full Activity/No Limits: No (Do not lift more than 10 lbs.) Activity Self Limited: No Pounds, do NOT lift more than: 10 Acute Coronary Syndrome Inclusion Criteria At DC or during hospital stay patient has or had the following: ACS DIAGNOSIS No Discharge Core Measures Meds if any: Prescribed or Continued at Discharge Meds if any: NOT Prescribed or Continued at Discharge Congestive Heart Failure Inclusion Criteria At DC or during hospital stay patient has or had the following: CHF DIAGNOSIS No Discharge Core Measures Meds if any: Prescribed or Continued at Discharge Meds if any: NOT Prescribed or Continued at Discharge Cerebrovascular accident Inclusion Criteria At DC or during hospital stay patient has or had the following: CVA/TIA Diagnosis No Discharge Core Measures Meds if any: Prescribed or Continued at Discharge Meds if any: NOT Prescribed or Continued at Discharge Venous thromboembolism Inclusion Criteria VTE Diagnosis No VTE Type NONE VTE Confirmed by (Test) NONE Discharge Core Measures - Per Current guidelines, there needs to be overlap - treatment for the first 5 days of Warfarin therapy. - If discharged on Warfarin prior to 5 days of - overlap therapy, the patient will need to be - assessed for post discharge needs including - *Post discharge parental anticoagulation - *Warfarin and/or parental anticoagulation education - *Follow up date to check INR post discharge At least 5 days overlap therapy as Inpatient No Meds if any: Prescribed or Continued at Discharge Note: Overlap Therapy is Warfarin and Anticoagulant Meds if any: NOT Prescribed or Continued at Discharge
--- NOTE | 2017-01-05 09:30 | Surgical Discharge Summary ---
See Addendum Visit Information Visit Dates Admission Date: 01/03/17 Discharge Date: 01/05/17 History of Present Illness Chief Complaint: pt. presented with abdominal pain , nausea and emesis. Workup revealed incarcerated umbilical hernia requiring surgical exploration Medical History Blood Transfusion Hx: No Neurological: NONE EENT: NONE Cardiovascular: NONE Respiratory: NONE Gastrointestinal: NONE Hepatic: NONE Renal: NONE Musculoskeletal: NONE Psychiatric: NONE Endocrine: hypothyroidism Blood Disorders: NONE Cancer(s): NONE [employer]ISSANCE SPECIALIST/Reproductive: NONE History of MRSA: No History of VRE: No History of CDIFF: No Isolation History: Standard Surgical History Pertinent Surgical History: none Psychosocial History Where Do You Live? Home Who Do You Live With? Spouse What is Your Primary Language? Nauruan ETOH Use: denies use Review of Systems: unremarkable Hospital Course Course Attending Physician: NIEVES GREENE,BRANDY [place] Primary Care Physician: GENE MCCLAIN MD Hospital Course: This is 56 y o morbidly obese female, ex smoker with long standing umbilical hernia, no prior medical or surgical hx who presented with abdominal pain, nausea and emesis.On exam she was found with acute abdomen. Evaluation with radiologic study showed umbilical hernia with incarcerated and obstructed transverse colon without proximal dilitation.It was not amenable to manual reduction. Pt. was taken subsequently to OR and underwent uncomplicated umbilical hernia repair with mesh and SHAHBAZ placement. Her bowel was viable. Post operatively she was hemodynamically stable. Her abdominal exam was as expected. She had adequate bowel fxn. and had been tolerating solid food. She currently doesn't require any narcotics for pain control. On examher abdomen is soft , incison have no signs of infection, dressing has old blood stain, SHAHBAZ has been putting out scant amounts of serosang. drainage. On POD#2 she c/o of feeling unsteady on her feet and generalized weakness which has been resolving. She is follwed by by PT for final disposition. Pt. is to be discharged home with SHAHBAZ drain in place , follow up in office in 4 days for drain removal once cleared by PT today. Allergies: Coded Allergies: Penicillins (RASH 01/02/17) Significant Procedures: This is 56 y o morbidly obese female, ex smoker with long standing umbilical hernia, no prior medical or surgical hx who presented with abdominal pain, nausea and emesis.On exam she was found with acute abdomen. Evaluation with radiologic study showed umbilical hernia with incarcerated and obstructed transverse colon without proximal dilitation.It was not amenable to manual reduction. Pt. was taken subsequently to OR and underwent uncomplicated umbilical hernia repair with mesh and SHAHBAZ placement. Her bowel was viable. Post operatively she was hemodynamically stable. Her abdominal exam was as expected. She had adequate bowel fxn. and had been tolerating solid food. She currently doesn't require any narcotics for pain control. On examher abdomen is soft , incison have no signs of infection, dressing has old blood stain, SHAHBAZ has been putting out scant amounts of serosang. drainage. On POD#2 she c/o of feeling unsteady on her feet and generalized weakness which has been resolving. She is follwed by by PT for final disposition. Pt. is to be discharged home with SHAHBAZ drain in place , follow up in office in 4 days for drain removal once cleared by PT today. Disposition Summary Disposition Principal Diagnosis: umbilical hernia Additional Diagnosis: none Discharge Disposition: home health services Discharge Instructions General Discharge Information Code Status: Full Code Patient's Diet: regular Patient's Activity: ambulate with walker Follow-Up Instructions/Appts: f.u in office on Monday for drain removal Call for fever greater than 101, redness, drainage around incision, increasing pain, nausea or vomiting. Monitor and record drain output
== END 2017-01-05 13:27 | DRG 354 ==
LOC: ERH 13:19 → ER-OR 13:32 → ENPENDDIS 01-03 → 2NB 01-03 → CRI 01-03 → 2NB 01-03 01:56
PROVIDERS: Emergency Medicine; Physician Assistant; Physician Assistant Surgical; ADMIT Surgery
PROC: 0WUF0JZ Supplement Abdominal Wall with Synthetic Substitute, Open Approach (ICD-10-PCS; principal; 2017-01-03)
PROC: 0DBS0ZZ (ICD-10-PCS; principal; 2017-01-03)
DX: K42.0 Umbilical hernia with obstruction, without gangrene (principal); Z68.45 Body mass index [BMI] 70 or greater, adult; Z87.891 Personal history of nicotine dependence; E03.9 Hypothyroidism, unspecified; E66.01 Morbid (severe) obesity due to excess calories
CPT/HCPCS: 2NBSP; 36415; 74176; 82436; 88305; 97116-GO; 97161-GP; 97530-GO; 99291; J0131; J1170; J1644; J2250; J2405; J3010